=== PATIENT | male | born 1960 | race Two or more races ===

== ENCOUNTER → 2017-03-26 | Outpatient (REF) | payer OTHER | LOC: M SMT 13:11 | PROVIDERS: ATTEND Nurse Practitioner Women's Health | DX: N41.0 Acute prostatitis (principal) ==

== ENCOUNTER → 2017-03-26 | Outpatient (CLI) | payer OTHER ==
--- NOTE | 2017-04-01 15:10 | DEXA ---
AP SPINE L1 - L4 1.083 -0.9 -0.9 LT FEMUR TOTAL 1.007 0.0 -0.2 RT FEMUR TOTAL 1.014 0.0 -0.2 TOTAL BODY TOTAL OTHER COMMENTS: Normal bone densitometry of the spine. Normal bone densitometry of the left hip. Normal bone densitometry of the right hip. There is degenerative change in the spine which may artificially elevate the BMD. The density of the spine has decreased 2.5% since 02/2014. The density of the left hip has decreased 4.0% since 02/2014. The density of the right hip has decreased 4.7% since 02/2014. The decreased density of the spine does represent a significant change since . The decreased density of the left hip does represent a significant change since 03/15/2014. The decreased density of the right hip does represent a significant change. FOLLOW-UP: Recommendation for the next bone density exam: 5 years. CARRIE
== END ==
LOC: M WHC 15:11
PROVIDERS: ATTEND Physician Assistant Medical
DX: Z79.899 Other long term (current) drug therapy (principal); M85.80 Other specified disorders of bone density and structure, unspecified site

== ENCOUNTER → 2018-04-01 | Outpatient (REF) | payer OTHER ==
[2018-04-01 17:36] LABS: APPEARANCE, URINE CLEAR (CLEAR); BACTERIA, URINE AUTO NEGATIVE (NEGATIVE); BILIRUBIN, URINE AUTO NEGATIVE (NEGATIVE); BLOOD, URINE BLOOD NEGATIVE (NEGATIVE); COLOR, URINE YELLOW (YELLOW); GLUCOSE, URINE (UA) AUTO NEGATIVE (NEGATIVE); KETONE, URINE AUTO NEGATIVE (NEGATIVE); LEUKOCYTE ESTERASE, URINE AUTO NEGATIVE (NEGATIVE); MUCUS, URINE SMALL (NEGATIVE); NITRITE, URINE AUTO NEGATIVE (NEGATIVE); PROTEIN, URINE AUTO NEGATIVE (NEGATIVE); RBC, URINE AUTO 3 /HPF (0-3); SPECIFIC GRAVITY URINE AUTO 1.013 (1.002-1.035); SQUAMOUS EPITHELIAL CELL UR AU 0 /HPF (0-6); UROBILINOGEN, URINE AUTO 0.2 mg/dL (0.0-2.0); WBC, URINE AUTO 0 /HPF (0-3)
== END ==
LOC: M SMT 16:59
DX: N40.1 Benign prostatic hyperplasia with lower urinary tract symptoms (principal)
CPT/HCPCS: 81001

== ENCOUNTER → 2018-07-22 | Outpatient (CLI) | payer OTHER ==
--- NOTE | 2018-07-22 14:30 | REP ---
Clinical: Microscopic hematuria . Comparison: 12/22/2005, 05/15/2015 . Technique: PA and lateral. Findings: The mediastinum and cardiac silhouette are normal. The lung wallace are clear and without acute consolidation, effusion, or pneumothorax. The skeletal structures are intact and normal. Impression: 1. No acute cardiopulmonary process. Electronically Signed by Jakub Bowman MD 07/22/2018 02:22 P
== END ==
LOC: M RAD 13:52
PROVIDERS: ATTEND Internal Medicine
DX: R50.9 Fever, unspecified (principal); R09.89 Other specified symptoms and signs involving the circulatory and respiratory systems

== ENCOUNTER → 2018-08-29 | Outpatient (REF) | payer OTHER ==
[2018-08-31 14:11] LABS: CHLAMYDIA PNEUMONIAE IgM <1:10 (Neg:<1:10); MYCOPLASMA PNEUMONIAE IgG 504 U/mL (0-99); MYCOPLASMA PNEUMONIAE IgM <770 U/mL (0-769)
== END ==
LOC: M LAB REF 13:04
PROVIDERS: ATTEND Internal Medicine Pulmonary Disease
DX: R05 Cough (principal)

== ENCOUNTER → 2018-08-30 | Outpatient (REF) | payer OTHER | LOC: M LAB REF 13:19 | PROVIDERS: ATTEND Internal Medicine Pulmonary Disease | DX: J20.8 Acute bronchitis due to other specified organisms (principal) ==

== ENCOUNTER → 2019-01-02 | Outpatient (CLI) | payer OTHER ==
--- NOTE | 2019-01-06 08:39 | SLEEPCENT ---
DATE OF PROCEDURE: 01/02/2019 ORDERED BY: Dr. Wayne Grant. Nocturnal polysomnography was performed for evaluation of sleep physiology in this patient with a history of excessive somnolence. Patient has a prior history of borderline sleep testing results and comorbidities of hypertension, diabetes mellitus type 2 and acid reflux disease. 7 hours and 57 minutes of data were reviewed. There are 367.5 minutes of sleep identified. Sleep latency was within normal limits at 18.5 minutes. REM latency was short at 65 minutes. Sleep architecture was fair with some fragmentation. There were five REM cycles noted. Overall sleep efficiency was 78.5%. The patient's electrocardiogram showed a sinus rhythm with an average heart rate of 60 beats per minute. Rate ranged 40-80 beats per minute. Unifocal ventricular ectopic beats were noted on occasion. EEG showed normal waveforms for awake and sleep. No focal events were identified. There were 67 respiratory events identified of 10 seconds in duration or greater for an apnea-hypopnea index of 10.9. The events were primarily obstructive not exclusive to sleep stage nor body posture. Respiratory related arousal index was 4.7 and oxygen desaturations were seen into the low 80s. There was some limb activity. Limb movement arousal index was 4.2 and remaining measures of sleep physiology were normal. IMPRESSION: Obstructive sleep apnea syndrome (G47.33). Apnea-hypopnea index 10.9. RECOMMENDATION: The patient should be encouraged to return to sleep disorder center for pressure therapy. In the interim, alcohol and sedative avoidance should be practiced and caution exercised during operation of motor vehicles.
== END ==
LOC: M SLEEP 19:42
PROVIDERS: ATTEND Internal Medicine Pulmonary Disease
DX: G47.33 Obstructive sleep apnea (adult) (pediatric) (principal)

== ENCOUNTER → 2019-02-06 | Outpatient (CLI) | payer OTHER ==
[2019-02-09 00:08] LABS: CYCLIC CITRULLINATED PEPTIDE 6 units (0-19); Lyme Disease IgG/IgM Antibodie <0.91 ISR (0.00-0.90); Lyme Disease IgM Ab Quantitati <0.80 index (0.00-0.79)
== END ==
LOC: M SMT 14:25
PROVIDERS: ATTEND Family Medicine
DX: M25.511 Pain in right shoulder (principal)

== ENCOUNTER → 2019-02-16 | Outpatient (CLI) | payer OTHER ==
--- NOTE | 2019-02-21 16:20 | SLEEPCENT ---
DATE OF PROCEDURE: 02/16/2019 Ordered by: Wayne Grant MD Nocturnal polysomnography was performed for the titration of pressure therapy in this patient with obstructive sleep apnea syndrome. Apnea-hypopnea index of 10.9. For testing. a Conferensum Eson nasal mask of large size was used, 4 cm of water pressure were applied to the circuit and the lights were extinguished. 7 hours and 7 minutes of data were reviewed. There were 328 minutes of sleep identified. Sleep latency was mildly prolonged at 24 minutes. REM latency was normal at 82 minutes. Sleep architecture was good with three REM cycles. Overall sleep efficiency 77.9%. The patient's electrocardiogram showed a sinus rhythm with respiratory variability, average heart rate 50 beats per minute. EEG showed normal waveforms for awake and sleep. Respiratory events were fully palliated with C-PAP at a pressure +6. There was some limb activity noted. Limb movement arousal index was 3.5. IMPRESSION Obstructive sleep apnea syndrome (G47.33). RECOMMENDATIONS Nightly use of pressure therapy 6 cm of water.
== END ==
LOC: M SLEEP 19:47
PROVIDERS: ATTEND Internal Medicine Pulmonary Disease
DX: G47.33 Obstructive sleep apnea (adult) (pediatric) (principal)

== ENCOUNTER → 2019-10-24 | Outpatient (CLI) | payer OTHER ==
--- NOTE | 2019-10-24 16:04 | REP ---
Clinical: Right testicular pain. Technique: Real time sommer scale and color evaluation using linear high frequency and curved array transducers. Findings: Right epididymal cyst measures 10 x 5.8 x 6.0 mm and likely related to patient's symptoms. A 4 mm scrotal arielel in the right amadeo scrotum is also identified. The bilateral testicles and left epididymis are otherwise normal in appearance. Vascularity is symmetric without evidence for torsion or infectious/inflammatory process. Minimal amount of scrotal fluid is nonspecific. Right testicle measures 4.8 x 1.6 x 3.5 cm. Left testicle measures 3.6 x 2.2 x 2.7 cm. Impression: Right testicular pain likely related to 1 cm right epididymal cyst. Incidental 4 mm right scrotal arielle.
== END ==
LOC: M PLAIMG 14:03
PROVIDERS: ATTEND Physician Assistant
DX: N50.811 Right testicular pain (principal); N50.3 Cyst of epididymis

== ENCOUNTER → 2020-11-18 | Outpatient (CLI) | payer OTHER ==
[2020-11-18 16:32] LABS: TOTAL PROTEIN 6.7 GM/DL (6.4-8.2)
[2020-11-18 16:42] LABS: FOLATE > 24.0 NG/ML; VITAMIN B12 LEVEL 694 PG/ML
[2020-11-18 17:02] LABS: HEMOGLOBIN A1c 6.5 %
== END ==
LOC: M PLALAB 13:42
PROVIDERS: ATTEND Psychiatry & Neurology Neurology
DX: E11.40 Type 2 diabetes mellitus with diabetic neuropathy, unspecified (principal); D51.9 Vitamin B12 deficiency anemia, unspecified

== ENCOUNTER → 2021-03-03 | Outpatient (CLI) | payer OTHER | LOC: M LABSMTC 11:54 | PROVIDERS: ATTEND Family Medicine | DX: Z20.822 Contact with and (suspected) exposure to COVID-19 (principal) | CPT/HCPCS: C9803; U0003 ==

== ENCOUNTER → 2021-04-05 | Outpatient (REF) | LOC: M LABSMTC 10:19 | PROVIDERS: ATTEND Pediatrics | DX: Z11.52 Encounter for screening for COVID-19 (principal) ==